=== PATIENT | male | born 1960 | race Caucasian/White ===

== ENCOUNTER → 2022-08-26 | Outpatient (CLI) | payer OTHER ==
[~2022-08-26] MED LIST: ASPI81CH33 PO; ATOR40TA75; D 50CAP2; MULTIVITAMIN PO; areds PO
== END ==
LOC: M RAD 09:11
PROVIDERS: ATTEND Nurse Practitioner
DX: D75.0 Familial erythrocytosis (principal)

== ENCOUNTER → 2023-04-18 | Outpatient (CLI) | payer OTHER | LOC: M SLEEP 20:00 | PROVIDERS: ATTEND Nurse Practitioner Family | DX: G47.61 Periodic limb movement disorder (principal); R40.0 Somnolence ==

== ENCOUNTER → 2024-05-15 | Outpatient (CLI) | payer OTHER ==
[~2024-05-15] MED LIST changes: +DULO1CAP4
== END ==
LOC: M CARPUL 08:34
PROVIDERS: ATTEND Internal Medicine
DX: J43.9 Emphysema, unspecified (principal)

== ENCOUNTER → 2024-05-24 | Outpatient (CLI) | payer OTHER | LOC: M RAD 15:25 | PROVIDERS: ATTEND Internal Medicine | DX: Z87.891 Personal history of nicotine dependence (principal) ==